=== PATIENT | female | born 1985 | race Caucasian/White ===

== ENCOUNTER 2016-09-10 18:10 | Emergency (ER) | payer OTHER ==
[~2016-09-10] VITALS: Ht 165.1 cm; Wt 90.7 kg
[~2016-09-10 18:10] MED LIST: AMITRIPTYLINE25 MG PO; ANAPROX DS550 MG PO; ANTIVERT25 MG PO; BENTYL10 MG PO; CELEXA40 MG PO; CIPROFLOXACIN500 MG PO; CLARITIN10 MG PO; CYCLOBENZAPRINE10 MG PO; ENDOMETRIN100 MG PO; ENDOMETRIN100 MG VG; Fioricet 325 MG1 TAB PO; HYDROCODONE BIT1 T11 PO; LEVAQUIN750 M1 PO; MACROBID100 M1 PO; MEDROL DOSEPAK4 MG PO; MOTRIN 600 MG E4 TAB PO; MOTRIN600 MG PO; Motrin,Rufen800 MG PO; NAPROSYN500 MG PO; NORCO 5-325 TA1 EACH PO; Orphenadrine C100 MG PO; PERCOCET 325 MG1 TA5 PO; PERCOCET 325 MG1 TA6 PO; PHENERGAN25 M1 PO; PHENERGAN25 MG R; PREDNISONE50 MG PO; PROTONIX40 MG PO; SYNTHROID,LEV112 MCG PO; SYNTHROID,LEV125 MCG PO; SYNTHROID0.05 MG PO; Synthroid,Lev100 MCG PO; TESSALON PERLE100 M1 PO; TOPAMAX25 M3 PO; TORADOL60 MG/2 ML PO; TRAMADOL HCL50 MG PO; TRIMOX500 MG PO; ULTRAM50 MG PO; VALIUM10 MG PO; VITAMIN D50000 I3 PO; XANAX0.5 MG PO; ZITHROMAX Z PA250 MG PO; ZOFRAN ODT4 MG SL; ZOFRAN4 MG PO
[2016-09-10] MEDS ORDERED: AMITRIPTYLINE10 MG PO (18:26)
[2016-09-10 19:10] VITALS: BP 124/74
== END 2016-09-10 20:29 | disposition home or self-care (01) ==
LOC: ED 18:10
DX: G43.909 Migraine, unspecified, not intractable, without status migrainosus (principal); F41.9 Anxiety disorder, unspecified; E03.9 Hypothyroidism, unspecified; E78.5 Hyperlipidemia, unspecified

== ENCOUNTER 2016-11-10 21:15 | Emergency (ER) | payer OTHER ==
[~2016-11-10] VITALS: Ht 165.1 cm; Wt 90.7 kg
[~2016-11-10 21:15] MED LIST changes: +AMITRIPTYLINE10 MG PO
== END 2016-11-10 23:48 | disposition left against medical advice (07) ==
LOC: ED 21:15
DX: R51 Headache (principal); H57.12 Ocular pain, left eye; F41.9 Anxiety disorder, unspecified; G89.29 Other chronic pain; F32.9 Major depressive disorder, single episode, unspecified; E78.5 Hyperlipidemia, unspecified; E03.9 Hypothyroidism, unspecified; G43.909 Migraine, unspecified, not intractable, without status migrainosus; Z79.899 Other long term (current) drug therapy

== ENCOUNTER 2016-12-02 21:40 | Emergency (ER) | payer OTHER ==
[~2016-12-02] VITALS: Ht 165.1 cm; Wt 90.7 kg
[2016-12-02 22:46] LABS: BASO % 0.6 % (0.0-1.0); EOS # 0.1 10*3/uL (0.0-0.4); EOS % 1.4 % (1.0-4.0); HEMATOCRIT 38.1 % (37.0-47.0); HEMOGLOBIN 12.8 g/dl (12.0-16.0); LYMPH # 2.2 10*3/uL (1.3-4.4); LYMPH % 33.8 % (27.0-41.0); MEAN CELL VOLUME 92.9 fl (81.0-99.0); MEAN CORPUSCULAR HGB 31.2 pg (27.0-31.0); MEAN CORPUSCULAR HGB CONC 33.6 g/dl (33.0-37.0); MEAN PLATELET VOLUME 9.2 fl (9.6-12.3); MONO # 0.5 10*3/uL (0.1-1.0); NEUT # 3.8 10*3/uL (2.3-7.9); NEUT % 56.9 % (47.0-73.0); PLATELET COUNT AUTOMATED 200 10*3/uL (130-400); RED CELL DISTRI WIDTH 13.5 % (0-14.5); WHITE BLOOD COUNT 6.6 10*3/uL (4.8-10.8)
[2016-12-02 23:01] LABS: BUN 14 mg/dl (7-24); CARBON DIOXIDE 26 mmol/L (21-32); CHLORIDE 106 mmol/L (98-107); EST GLOM FILT AFRICAN AMERICAN > 60 ml/min; GLUCOSE 105 mg/dL (65-99); POTASSIUM 4.1 mmol/L (3.5-5.1); SODIUM 141 mmol/L (136-145)
[2016-12-02 23:55] VITALS: BP 118/70
== END 2016-12-03 01:19 | disposition home or self-care (01) ==
LOC: ED 21:40
PROVIDERS: Emergency Medicine Emergency Medical Services
DX: G43.909 Migraine, unspecified, not intractable, without status migrainosus (principal); F41.9 Anxiety disorder, unspecified; F32.9 Major depressive disorder, single episode, unspecified; E78.5 Hyperlipidemia, unspecified; E03.9 Hypothyroidism, unspecified; Z79.899 Other long term (current) drug therapy

== ENCOUNTER 2016-12-13 02:08 | Emergency (ER) | payer OTHER ==
[~2016-12-13] VITALS: Ht 165.1 cm; Wt 90.7 kg
[2016-12-13 04:17] VITALS: BP 114/77
[2016-12-13] MEDS ORDERED: ZOFRAN ODT4 MG SL (04:48)
== END 2016-12-13 06:40 | disposition home or self-care (01) ==
LOC: ED 02:08
DX: G43.809 Other migraine, not intractable, without status migrainosus (principal); F41.9 Anxiety disorder, unspecified; F32.9 Major depressive disorder, single episode, unspecified; E78.5 Hyperlipidemia, unspecified; E03.9 Hypothyroidism, unspecified; F17.200 Nicotine dependence, unspecified, uncomplicated; Z79.899 Other long term (current) drug therapy

== ENCOUNTER 2017-01-09 23:25 | Emergency (ER) | payer OTHER ==
[~2017-01-09] VITALS: Ht 165.1 cm; Wt 90.7 kg
[2017-01-09 23:31] VITALS: BP 136/87
[2017-01-09] MEDS ORDERED: INDOMETHACIN25 M1 PO (23:32)
== END 2017-01-10 02:14 | disposition home or self-care (01) ==
LOC: ED 23:25
DX: R51 Headache (principal); Z90.49 Acquired absence of other specified parts of digestive tract; Z79.899 Other long term (current) drug therapy

== ENCOUNTER 2017-01-11 12:55 | Inpatient (IN) | payer OTHER ==
[~2017-01-11] VITALS: Ht 165.1 cm; Wt 94.8 kg
[~2017-01-11 12:55] MED LIST changes: +INDOMETHACIN25 M1 PO
[2017-01-11 13:00] VITALS: BP 120/81
[2017-01-11 13:09] LABS: BASO % 0.3 % (0.0-1.0); EOS # 0.1 10*3/uL (0.0-0.4); EOS % 0.4 % (1.0-4.0); HEMATOCRIT 41.8 % (37.0-47.0); HEMOGLOBIN 14.1 g/dl (12.0-16.0); IG # 0.1 10*3/uL (0.0-0.1); LYMPH # 1.5 10*3/uL (1.3-4.4); LYMPH % 11.4 % (27.0-41.0); MEAN CELL VOLUME 91.5 fl (81.0-99.0); MEAN CORPUSCULAR HGB 30.9 pg (27.0-31.0); MEAN CORPUSCULAR HGB CONC 33.7 g/dl (33.0-37.0); MONO # 0.6 10*3/uL (0.1-1.0); MONO % 4.5 % (3.0-9.0); NEUT % 82.9 % (47.0-73.0); PLATELET COUNT AUTOMATED 246 10*3/uL (130-400); RED BLOOD COUNT 4.57 10*6/uL (4.10-5.10); RED CELL DISTRI WIDTH 13.1 % (0-14.5); WHITE BLOOD COUNT 13.2 10*3/uL (4.8-10.8)
[2017-01-11 13:20] LABS: INTERNATIONAL NORM RATIO 0.9 (2.0-3.5); PROTHROMBIN TIME 9.8 SECONDS (9.0-12.4)
[2017-01-11 13:26] LABS: ALBUMIN 3.6 gm/dl (3.1-4.5); ALKALINE PHOSPHATASE 101 U/L (45-117); BILIRUBIN, TOTAL 0.5 mg/dl (0.2-1.0); BUN 13 mg/dl (7-24); CARBON DIOXIDE 23 mmol/L (21-32); CHLORIDE 106 mmol/L (98-107); EST GLOM FILT AFRICAN AMERICAN > 60 ml/min; GLUCOSE 94 mg/dL (65-99); POTASSIUM 4.1 mmol/L (3.5-5.1); SGOT/AST 42 IU/L (3-35); SGPT/ALT 45 U/L (12-78); SODIUM 140 mmol/L (136-145); TOTAL PROTEIN 7.2 gm/dL (6.4-8.2)
[2017-01-11 13:30] LABS: TROPONIN I < 0.015 ng/ml (<0.045)
[2017-01-11 13:33] VITALS: BP 117/77
[2017-01-11 14:00] VITALS: BP 124/87
[2017-01-11 16:00] VITALS: BP 121/75
[2017-01-11 17:31] VITALS: BP 120/77
[2017-01-11 20:00] VITALS: BP 116/79
[2017-01-12] VITALS: BP 107/64
[2017-01-12 05:54] LABS: BASO % 0.1 % (0.0-1.0); HEMATOCRIT 39.8 % (37.0-47.0); HEMOGLOBIN 13.3 g/dl (12.0-16.0); IG # 0.3 10*3/uL (0.0-0.1); LYMPH # 1.3 10*3/uL (1.3-4.4); LYMPH % 7.8 % (27.0-41.0); MEAN CELL VOLUME 92.6 fl (81.0-99.0); MEAN CORPUSCULAR HGB 30.9 pg (27.0-31.0); MEAN CORPUSCULAR HGB CONC 33.4 g/dl (33.0-37.0); MEAN PLATELET VOLUME 9.1 fl (9.6-12.3); MONO # 0.8 10*3/uL (0.1-1.0); MONO % 4.9 % (3.0-9.0); NEUT # 14.8 10*3/uL (2.3-7.9); NEUT % 85.6 % (47.0-73.0); PLATELET COUNT AUTOMATED 272 10*3/uL (130-400); RED CELL DISTRI WIDTH 13.1 % (0-14.5); WHITE BLOOD COUNT 17.3 10*3/uL (4.8-10.8)
[2017-01-12 06:03] LABS: BUN 12 mg/dl (7-24); CARBON DIOXIDE 28 mmol/L (21-32); CHLORIDE 105 mmol/L (98-107); EST GLOM FILT AFRICAN AMERICAN > 60 ml/min; GLUCOSE 111 mg/dL (65-99); MAGNESIUM 1.9 mg/dL (1.5-2.1); PHOSPHOROUS 2.6 mg/dL (2.5-4.9); POTASSIUM 4.4 mmol/L (3.5-5.1); SODIUM 137 mmol/L (136-145)
[2017-01-12 06:10] LABS: FREE T4 0.98 ng/dl (0.76-1.46); THYROID STIM HORMONE (HS) 0.657 uIU/ml (0.358-4.75)
[2017-01-12 07:31] LABS: HEMOGLOBIN A1c 5.5 % (4.8-5.6)
[2017-01-12 07:58] LABS: FOLIC ACID 4.54 ng/mL (>5.38); VITAMIN D, 25-HYDROXY 18.1 ng/mL (30-100)
[2017-01-12 08:00] VITALS: BP 102/63
[2017-01-12 12:00] VITALS: BP 117/67
== END 2017-01-12 15:35 | disposition home or self-care (01) | DRG 313 ==
LOC: ED 12:55 → 4E 17:06
PROVIDERS: Emergency Medicine; Internal Medicine
DX: R07.89 Other chest pain (principal); R65.10 Systemic inflammatory response syndrome (SIRS) of non-infectious origin without acute organ dysfunction; G44.51 Hemicrania continua; F41.1 Generalized anxiety disorder; E03.9 Hypothyroidism, unspecified; F32.9 Major depressive disorder, single episode, unspecified; R06.82 Tachypnea, not elsewhere classified; R00.0 Tachycardia, unspecified; E87.6 Hypokalemia; G43.909 Migraine, unspecified, not intractable, without status migrainosus; G89.29 Other chronic pain; E78.5 Hyperlipidemia, unspecified; Z90.49 Acquired absence of other specified parts of digestive tract; Z83.3 Family history of diabetes mellitus; Z82.49 Family history of ischemic heart disease and other diseases of the circulatory system; M54.12 Radiculopathy, cervical region

== ENCOUNTER 2017-01-13 23:20 | Emergency (ER) | payer OTHER ==
[2017-01-13 23:26] VITALS: BP 130/86
[2017-01-13 23:37] LABS: BASO # 0.1 10*3/uL (0.0-0.1); BASO % 0.4 % (0.0-1.0); EOS # 0.1 10*3/uL (0.0-0.4); EOS % 0.7 % (1.0-4.0); HEMATOCRIT 40.1 % (37.0-47.0); HEMOGLOBIN 13.4 g/dl (12.0-16.0); IG # 0.1 10*3/uL (0.0-0.1); LYMPH # 2.8 10*3/uL (1.3-4.4); LYMPH % 23.4 % (27.0-41.0); MEAN CELL VOLUME 92.8 fl (81.0-99.0); MEAN CORPUSCULAR HGB CONC 33.4 g/dl (33.0-37.0); MEAN PLATELET VOLUME 8.7 fl (9.6-12.3); MONO # 0.8 10*3/uL (0.1-1.0); MONO % 6.9 % (3.0-9.0); NEUT % 67.7 % (47.0-73.0); PLATELET COUNT AUTOMATED 257 10*3/uL (130-400); RED BLOOD COUNT 4.32 10*6/uL (4.10-5.10); RED CELL DISTRI WIDTH 13.2 % (0-14.5); WHITE BLOOD COUNT 11.8 10*3/uL (4.8-10.8)
[2017-01-13 23:47] LABS: INTERNATIONAL NORM RATIO 0.9 (2.0-3.5); PROTHROMBIN TIME 9.7 SECONDS (9.0-12.4)
[2017-01-13 23:54] LABS: ALBUMIN 3.2 gm/dl (3.1-4.5); ALKALINE PHOSPHATASE 92 U/L (45-117); BILIRUBIN, TOTAL 0.3 mg/dl (0.2-1.0); BUN 12 mg/dl (7-24); CARBON DIOXIDE 26 mmol/L (21-32); CHLORIDE 106 mmol/L (98-107); EST GLOM FILT AFRICAN AMERICAN > 60 ml/min; GLUCOSE 84 mg/dL (65-99); MAGNESIUM 1.8 mg/dL (1.5-2.1); POTASSIUM 3.6 mmol/L (3.5-5.1); SGOT/AST 35 IU/L (3-35); SGPT/ALT 39 U/L (12-78); SODIUM 140 mmol/L (136-145); TOTAL PROTEIN 6.9 gm/dL (6.4-8.2)
[2017-01-13 23:55] LABS: TROPONIN I < 0.015 ng/ml (<0.045)
[2017-01-15] MEDS ORDERED: NORCO 5-325 TA1 EACH PO (01:34)
== END 2017-01-14 02:55 | disposition home or self-care (01) ==
LOC: ED 23:20
PROVIDERS: Emergency Medicine Emergency Medical Services
DX: R07.89 Other chest pain (principal); F41.9 Anxiety disorder, unspecified; G43.909 Migraine, unspecified, not intractable, without status migrainosus; G89.29 Other chronic pain; F32.9 Major depressive disorder, single episode, unspecified; E78.5 Hyperlipidemia, unspecified; E03.9 Hypothyroidism, unspecified; Z98.890 Other specified postprocedural states; Z90.49 Acquired absence of other specified parts of digestive tract; Z98.51 Tubal ligation status; Z79.899 Other long term (current) drug therapy

== ENCOUNTER 2017-01-14 23:30 | Emergency (ER) | payer OTHER ==
[~2017-01-14] VITALS: Ht 165.1 cm; Wt 90.7 kg
[2017-01-15] MEDS ORDERED: NORCO 5-325 TA1 EACH PO (01:34)
[2017-01-15 01:44] VITALS: BP 118/72
== END 2017-01-15 01:45 | disposition home or self-care (01) ==
LOC: ED 23:30
DX: R51 Headache (principal); F17.200 Nicotine dependence, unspecified, uncomplicated; F32.9 Major depressive disorder, single episode, unspecified; E03.9 Hypothyroidism, unspecified; E78.5 Hyperlipidemia, unspecified; F41.9 Anxiety disorder, unspecified; Z90.49 Acquired absence of other specified parts of digestive tract; Z79.899 Other long term (current) drug therapy

== ENCOUNTER 2017-01-29 23:27 | Emergency (ER) | payer OTHER ==
[~2017-01-29] VITALS: Ht 165.1 cm; Wt 90.7 kg
[2017-01-29 23:31] VITALS: BP 121/82
== END 2017-01-30 03:06 | disposition home or self-care (01) ==
LOC: ED 23:27
DX: R51 Headache (principal); R11.0 Nausea; H53.8 Other visual disturbances; Z79.899 Other long term (current) drug therapy

== ENCOUNTER 2017-02-07 00:44 | Emergency (ER) | payer OTHER ==
[~2017-02-07] VITALS: Wt 90.7 kg
[2017-02-07 00:50] VITALS: BP 123/91
== END 2017-02-07 02:53 | disposition home or self-care (01) ==
LOC: ED 00:44
DX: S66.912A Strain of unspecified muscle, fascia and tendon at wrist and hand level, left hand, initial encounter (principal); R51 Headache; E78.5 Hyperlipidemia, unspecified; E03.9 Hypothyroidism, unspecified; Z79.899 Other long term (current) drug therapy; X58.XXXA Exposure to other specified factors, initial encounter; Y93.9 Activity, unspecified; Y92.9 Unspecified place or not applicable; Y99.9 Unspecified external cause status

== ENCOUNTER 2017-02-17 18:31 | Emergency (ER) | payer OTHER ==
[~2017-02-17] VITALS: Ht 165.1 cm; Wt 90.7 kg
[2017-02-17] MEDS ORDERED: VICODIN 5-3001 EACH PO (18:41)
[2017-02-17 19:41] LABS: BASO % 0.5 % (0.0-1.0); EOS # 0.2 10*3/uL (0.0-0.4); EOS % 1.9 % (1.0-4.0); HEMATOCRIT 42.6 % (37.0-47.0); HEMOGLOBIN 14.3 g/dl (12.0-16.0); LYMPH # 1.2 10*3/uL (1.3-4.4); LYMPH % 14.3 % (27.0-41.0); MEAN CELL VOLUME 92.4 fl (81.0-99.0); MEAN CORPUSCULAR HGB CONC 33.6 g/dl (33.0-37.0); MEAN PLATELET VOLUME 8.6 fl (9.6-12.3); MONO # 0.7 10*3/uL (0.1-1.0); MONO % 7.7 % (3.0-9.0); NEUT # 6.3 10*3/uL (2.3-7.9); NEUT % 75.1 % (47.0-73.0); PLATELET COUNT AUTOMATED 229 10*3/uL (130-400); RED BLOOD COUNT 4.61 10*6/uL (4.10-5.10); RED CELL DISTRI WIDTH 13.6 % (0-14.5); WHITE BLOOD COUNT 8.4 10*3/uL (4.8-10.8)
[2017-02-17 19:57] LABS: BUN 6 mg/dl (7-24); CARBON DIOXIDE 26 mmol/L (21-32); CHLORIDE 101 mmol/L (98-107); EST GLOM FILT AFRICAN AMERICAN > 60 ml/min; GLUCOSE 96 mg/dL (65-99); POTASSIUM 3.9 mmol/L (3.5-5.1); SODIUM 139 mmol/L (136-145)
[2017-02-17 19:58] LABS: TROPONIN I < 0.015 ng/ml (<0.045)
[2017-02-17 20:29] VITALS: BP 105/63
[2017-02-17] MEDS ORDERED: PROAIR HFA8.5 GM INH (21:00)
[2017-02-17] MEDS ORDERED: ZITHROMAX250 MG PO (21:02)
[2017-02-17] MEDS ORDERED: ROBITUSSIN DM 105 ML PO (21:02)
== END 2017-02-17 21:33 | disposition home or self-care (01) ==
LOC: ED 18:31
PROVIDERS: Emergency Medicine Emergency Medical Services
DX: J40 Bronchitis, not specified as acute or chronic (principal); R11.10 Vomiting, unspecified; E78.5 Hyperlipidemia, unspecified; E03.9 Hypothyroidism, unspecified; G89.29 Other chronic pain; Z79.899 Other long term (current) drug therapy

== ENCOUNTER 2017-03-29 23:01 | Emergency (ER) | payer OTHER ==
[~2017-03-29] VITALS: Ht 165.1 cm; Wt 90.7 kg
[~2017-03-29 23:01] MED LIST changes: +PROAIR HFA8.5 GM INH; +ROBITUSSIN DM 105 ML PO; +VICODIN 5-3001 EACH PO; +ZITHROMAX250 MG PO
[2017-03-29 23:11] VITALS: BP 117/86
[2017-03-29] MEDS ORDERED: LIPITOR10 MG PO (23:11)
== END 2017-03-30 01:40 | disposition home or self-care (01) ==
LOC: ED 23:01
DX: G43.909 Migraine, unspecified, not intractable, without status migrainosus (principal); Z98.890 Other specified postprocedural states; Z90.49 Acquired absence of other specified parts of digestive tract; Z98.51 Tubal ligation status; Z79.899 Other long term (current) drug therapy

== ENCOUNTER → 2017-04-05 | Outpatient (CLI) | payer OTHER ==
[~2017-04-05] MED LIST changes: +LIPITOR10 MG PO
== END | disposition home or self-care (01) ==
LOC: US 04-04 07:30
DX: R94.5 Abnormal results of liver function studies (principal)

== ENCOUNTER 2017-05-12 13:22 | Emergency (ER) | payer SELFPAY ==
[~2017-05-12] VITALS: Wt 90.7 kg
[2017-05-12 13:22] VITALS: BP 112/64
[2017-05-12 13:42] LABS: BASO % 0.4 % (0.0-1.0); EOS # 0.2 10*3/uL (0.0-0.4); EOS % 2.1 % (1.0-4.0); HEMATOCRIT 42.4 % (37.0-47.0); HEMOGLOBIN 14.1 g/dl (12.0-16.0); LYMPH # 1.5 10*3/uL (1.3-4.4); LYMPH % 20.4 % (27.0-41.0); MEAN CORPUSCULAR HGB 31.3 pg (27.0-31.0); MEAN CORPUSCULAR HGB CONC 33.3 g/dl (33.0-37.0); MEAN PLATELET VOLUME 9.1 fl (9.6-12.3); MONO # 0.4 10*3/uL (0.1-1.0); MONO % 5.2 % (3.0-9.0); NEUT # 5.2 10*3/uL (2.3-7.9); NEUT % 71.2 % (47.0-73.0); PLATELET COUNT AUTOMATED 228 10*3/uL (130-400); RED BLOOD COUNT 4.51 10*6/uL (4.10-5.10); RED CELL DISTRI WIDTH 13.8 % (0-14.5); WHITE BLOOD COUNT 7.3 10*3/uL (4.8-10.8)
[2017-05-12 13:59] LABS: ALBUMIN 3.5 gm/dl (3.1-4.5); ALKALINE PHOSPHATASE 91 U/L (45-117); BUN 7 mg/dl (7-24); CHLORIDE 106 mmol/L (98-107); LIPASE 197 U/L (73-393); SGOT/AST 61 IU/L (3-35); SGPT/ALT 50 U/L (12-78); SODIUM 136 mmol/L (136-145); TOTAL PROTEIN 7.2 gm/dL (6.4-8.2)
[2017-05-12] MEDS ORDERED: Fioricet 325 MG1 TAB PO (16:49)
== END 2017-05-12 18:06 | disposition home or self-care (01) ==
LOC: ED 13:22
PROVIDERS: Emergency Medicine
DX: G43.909 Migraine, unspecified, not intractable, without status migrainosus (principal); G89.29 Other chronic pain; E78.5 Hyperlipidemia, unspecified; E03.9 Hypothyroidism, unspecified; Z98.890 Other specified postprocedural states; Z90.49 Acquired absence of other specified parts of digestive tract; Z98.51 Tubal ligation status; Z79.899 Other long term (current) drug therapy

== ENCOUNTER 2017-05-30 19:30 | Emergency (ER) | payer OTHER ==
[~2017-05-30] VITALS: Ht 165.1 cm; Wt 86.2 kg
[2017-05-30 19:46] VITALS: BP 120/76
[2017-05-30 20:12] LABS: BASO % 0.6 % (0.0-1.0); EOS # 0.2 10*3/uL (0.0-0.4); EOS % 2.6 % (1.0-4.0); HEMATOCRIT 40.1 % (37.0-47.0); HEMOGLOBIN 13.2 g/dl (12.0-16.0); LYMPH # 2.2 10*3/uL (1.3-4.4); LYMPH % 32.6 % (27.0-41.0); MEAN CELL VOLUME 93.5 fl (81.0-99.0); MEAN CORPUSCULAR HGB 30.8 pg (27.0-31.0); MEAN CORPUSCULAR HGB CONC 32.9 g/dl (33.0-37.0); MEAN PLATELET VOLUME 8.8 fl (9.6-12.3); MONO # 0.6 10*3/uL (0.1-1.0); MONO % 8.4 % (3.0-9.0); NEUT # 3.7 10*3/uL (2.3-7.9); NEUT % 55.5 % (47.0-73.0); PLATELET COUNT AUTOMATED 227 10*3/uL (130-400); RED BLOOD COUNT 4.29 10*6/uL (4.10-5.10); RED CELL DISTRI WIDTH 13.4 % (0-14.5); WHITE BLOOD COUNT 6.7 10*3/uL (4.8-10.8)
[2017-05-30 20:20] LABS: ACT PARTIAL THROMBO TIME 24.9 SECONDS (20.8-31.5); INTERNATIONAL NORM RATIO 0.9 (2.0-3.5)
[2017-05-30 20:28] LABS: ALBUMIN 3.3 gm/dl (3.1-4.5); ALKALINE PHOSPHATASE 97 U/L (45-117); BUN 6 mg/dl (7-24); CHLORIDE 108 mmol/L (98-107); CREATININE 0.92 mg/dL (0.55-1.02); POTASSIUM 3.5 mmol/L (3.5-5.1); SGOT/AST 81 IU/L (3-35); SGPT/ALT 66 U/L (12-78); SODIUM 141 mmol/L (136-145); TOTAL PROTEIN 6.9 gm/dL (6.4-8.2)
[2017-05-30 20:35] LABS: BETA-HCG, QUANT < 1.0 mIU/mL (1-3); TROPONIN I < 0.015 ng/ml (<0.045)
== END 2017-05-30 23:52 | disposition home or self-care (01) ==
LOC: ED 19:30
PROVIDERS: Student in an Organized Health Care Education/Training Program
DX: G43.909 Migraine, unspecified, not intractable, without status migrainosus (principal); R20.0 Anesthesia of skin; G89.29 Other chronic pain; E78.5 Hyperlipidemia, unspecified; E03.9 Hypothyroidism, unspecified; Z98.890 Other specified postprocedural states; Z98.51 Tubal ligation status; Z79.899 Other long term (current) drug therapy

== ENCOUNTER → 2017-06-18 | Day surgery (SDC) | payer OTHER ==
[~2017-06-18] VITALS: Ht 165.1 cm; Wt 97.1 kg
[2017-06-18 09:45] VITALS: BP 98/46
[2017-06-18 10:58] VITALS: BP 82/48
[2017-06-18 11:13] VITALS: BP 91/50
[2017-06-18 11:26] VITALS: BP 100/61
== END | disposition home or self-care (01) ==
LOC: SDC 06-15 10:15
DX: K29.70 Gastritis, unspecified, without bleeding (principal); E03.9 Hypothyroidism, unspecified; F41.9 Anxiety disorder, unspecified; F32.9 Major depressive disorder, single episode, unspecified; Z98.51 Tubal ligation status; Z82.49 Family history of ischemic heart disease and other diseases of the circulatory system; Z83.3 Family history of diabetes mellitus; Z86.69 Personal history of other diseases of the nervous system and sense organs; G43.909 Migraine, unspecified, not intractable, without status migrainosus

== ENCOUNTER 2017-07-12 14:08 | Emergency (ER) | payer OTHER ==
[~2017-07-12] VITALS: Wt 95.3 kg
[2017-07-12 14:12] VITALS: BP 110/80
== END 2017-07-12 16:53 | disposition home or self-care (01) ==
LOC: ED 14:08
DX: G43.909 Migraine, unspecified, not intractable, without status migrainosus (principal); Z79.899 Other long term (current) drug therapy; Z90.49 Acquired absence of other specified parts of digestive tract; Z98.51 Tubal ligation status

== ENCOUNTER 2017-08-17 00:49 | Emergency (ER) | payer OTHER ==
[~2017-08-17] VITALS: Ht 165.1 cm; Wt 95.3 kg
[2017-08-17 00:52] VITALS: BP 98/60
[2017-08-17 02:02] LABS: BASO % 0.4 % (0.0-1.0); EOS # 0.1 10*3/uL (0.0-0.4); EOS % 1.2 % (1.0-4.0); HEMATOCRIT 42.6 % (37.0-47.0); LYMPH # 2.6 10*3/uL (1.3-4.4); LYMPH % 35.7 % (27.0-41.0); MEAN CORPUSCULAR HGB 30.6 pg (27.0-31.0); MEAN CORPUSCULAR HGB CONC 32.9 g/dl (33.0-37.0); MEAN PLATELET VOLUME 9.3 fl (9.6-12.3); MONO # 0.6 10*3/uL (0.1-1.0); MONO % 7.5 % (3.0-9.0); NEUT % 54.8 % (47.0-73.0); PLATELET COUNT AUTOMATED 245 10*3/uL (130-400); RED BLOOD COUNT 4.58 10*6/uL (4.10-5.10); RED CELL DISTRI WIDTH 14.2 % (0-14.5); WHITE BLOOD COUNT 7.3 10*3/uL (4.8-10.8)
[2017-08-17 02:20] LABS: ALBUMIN 3.6 gm/dl (3.1-4.5); ALKALINE PHOSPHATASE 94 U/L (45-117); BUN 8 mg/dl (7-24); CHLORIDE 105 mmol/L (98-107); CREATININE 1.03 mg/dL (0.55-1.02); POTASSIUM 3.6 mmol/L (3.5-5.1); SGOT/AST 69 IU/L (3-35); SGPT/ALT 59 U/L (12-78); SODIUM 140 mmol/L (136-145); TOTAL PROTEIN 7.3 gm/dL (6.4-8.2)
[2017-08-17 02:23] LABS: BETA-HCG, QUANT < 1.0 mIU/mL (1-3); TROPONIN I < 0.015 ng/ml (<0.045)
== END 2017-08-17 03:17 | disposition home or self-care (01) ==
LOC: ED 00:49
PROVIDERS: Student in an Organized Health Care Education/Training Program
DX: T14.8XXA Other injury of unspecified body region, initial encounter (principal); R51 Headache; M79.672 Pain in left foot; M53.3 Sacrococcygeal disorders, not elsewhere classified; R11.10 Vomiting, unspecified; E78.5 Hyperlipidemia, unspecified; E03.9 Hypothyroidism, unspecified; G43.909 Migraine, unspecified, not intractable, without status migrainosus; W18.39XA Other fall on same level, initial encounter; Z79.899 Other long term (current) drug therapy; Y93.89 Activity, other specified; Y92.89 Other specified places as the place of occurrence of the external cause; Y99.8 Other external cause status

== ENCOUNTER 2018-01-16 16:21 | Emergency (ER) | payer OTHER ==
[~2018-01-16] VITALS: Ht 165.1 cm; Wt 90.7 kg
[2018-01-16 16:21] VITALS: BP 136/92
[2018-01-16 16:51] LABS: BILIRUBIN NEGATIVE (NEGATIVE); BLOOD 3+ (NEGATIVE); CLARITY SL CLOUDY (CLEAR); COLOR YELLOW (YELLOW); GLUCOSE NEGATIVE (NEGATIVE); KETONE NEGATIVE (NEGATIVE); LEUKO ESTERASE 1+ (NEGATIVE); NITRITE NEGATIVE (NEGATIVE); PH 5.5 (5.0-9.0); UROBILINOGEN 0.2 E.U./dl (0.2-1.0)
[2018-01-16 17:08] LABS: BACTERIA 3+
[2018-01-16 17:09] LABS: EPITHELIAL CELLS 31-40
[2018-01-16 17:10] LABS: RBC 21-30 rbc/hpf (0-2)
== END 2018-01-16 17:59 | disposition home or self-care (01) ==
LOC: ED 16:21
PROVIDERS: Physician Assistant
DX: G43.909 Migraine, unspecified, not intractable, without status migrainosus (principal); N93.8 Other specified abnormal uterine and vaginal bleeding; Z98.890 Other specified postprocedural states; Z90.49 Acquired absence of other specified parts of digestive tract; Z98.51 Tubal ligation status; Z79.899 Other long term (current) drug therapy

== ENCOUNTER 2018-07-30 21:34 | Emergency (ER) | payer OTHER ==
[~2018-07-30] VITALS: Ht 165.1 cm; Wt 89.8 kg
--- NOTE | ~2018-07-30 | EKG ---
[place], [place] ELECTROCARDIOGRAM REPORT NAME: PENG BEARD UNIT #: [id number] ROOM: DOCTOR: EPIPHANY DRAFT REPORT BIRTHDATE: [birth year] [facility] Test Date: 2018-07-30 Test Time: 22:39:16 Pat Name: PENG BEARD Department: ER Room: 19 Gender: F Tank Riveter: Janee Varela : 1985 Requested By: HAVEN REEVES Order Number: [id number] Reading MD: Josh Garcia MD Measurements Intervals [place] Rate: 81 P: 10 CA: 144 QRS: 4 QRSD: 84 T: 2 QT: 369 QTc: 429 Interpretive Statements Sinus rhythm Low voltage, precordial leads Borderline T abnormalities, anterior leads Electronically Signed On 07-31-2018 18:07:11 PST by Josh Garcia MD CM:EKGRPT:ELECTROCARDIOGRAM REPORT [id number] HAVEN CRONIN DRAFT REPORT HAVEN REEVES DO
[~2018-07-30 21:34] MED LIST changes: +AMOXICILLIN500 M2 PO; +DIFLUCAN150 MG PO; +PREDNISONE20 M1 PO; +PROVENTIL HFA6.7 GM INH
[2018-07-30 22:35] LABS: BASO % 0.5 % (0.0-1.0); EOS % 0.4 % (1.0-4.0); HEMATOCRIT 40.8 % (37.0-47.0); HEMOGLOBIN 13.5 g/dl (12.0-16.0); LYMPH # 2.4 10*3/uL (1.3-4.4); LYMPH % 31.8 % (27.0-41.0); MEAN CELL VOLUME 93.8 fl (81.0-99.0); MEAN CORPUSCULAR HGB CONC 33.1 g/dl (33.0-37.0); MONO # 0.6 10*3/uL (0.1-1.0); MONO % 7.3 % (3.0-9.0); NEUT # 4.5 10*3/uL (2.3-7.9); NEUT % 59.6 % (47.0-73.0); PLATELET COUNT AUTOMATED 247 10*3/uL (130-400); RED BLOOD COUNT 4.35 10*6/uL (4.10-5.10); RED CELL DISTRI WIDTH 13.1 % (0-14.5); WHITE BLOOD COUNT 7.5 10*3/uL (4.8-10.8)
[2018-07-30 22:45] LABS: INTERNATIONAL NORM RATIO 0.9 (2.0-3.5)
[2018-07-30 22:53] LABS: ALBUMIN 3.8 gm/dl (3.1-4.5); ALKALINE PHOSPHATASE 84 U/L (45-117); BUN 8 mg/dl (7-24); CHLORIDE 106 mmol/L (98-107); CREATININE 0.84 mg/dL (0.55-1.02); POTASSIUM 3.9 mmol/L (3.5-5.1); SGOT/AST 46 IU/L (3-35); SGPT/ALT 41 U/L (12-78); SODIUM 141 mmol/L (136-145); TOTAL PROTEIN 7.7 gm/dL (6.4-8.2)
[2018-07-30 22:55] LABS: TROPONIN I < 0.015 ng/ml (<0.045)
[2018-07-30 23:31] VITALS: BP 128/90
== END 2018-07-31 00:18 | disposition home or self-care (01) ==
LOC: ED 21:34
PROVIDERS: Emergency Medicine
DX: R00.2 Palpitations (principal); R51 Headache; R06.02 Shortness of breath; R42 Dizziness and giddiness; G43.909 Migraine, unspecified, not intractable, without status migrainosus; G89.29 Other chronic pain; E78.5 Hyperlipidemia, unspecified; E03.9 Hypothyroidism, unspecified; Z79.2 Long term (current) use of antibiotics; Z79.899 Other long term (current) drug therapy; Z90.49 Acquired absence of other specified parts of digestive tract

== ENCOUNTER 2018-12-13 11:09 | Emergency (ER) | payer OTHER ==
[~2018-12-13] VITALS: Ht 165.1 cm; Wt 83.9 kg
[2018-12-13 11:10] VITALS: BP 126/63
[2018-12-13 11:48] LABS: BASO % 0.4 % (0.0-1.0); EOS % 0.3 % (1.0-4.0); HEMATOCRIT 42.7 % (37.0-47.0); HEMOGLOBIN 14.1 g/dl (12.0-16.0); LYMPH # 1.4 10*3/uL (1.3-4.4); MEAN CELL VOLUME 93.4 fl (81.0-99.0); MEAN CORPUSCULAR HGB 30.9 pg (27.0-31.0); MEAN PLATELET VOLUME 8.8 fl (9.6-12.3); MONO # 0.5 10*3/uL (0.1-1.0); MONO % 7.2 % (3.0-9.0); NEUT # 4.9 10*3/uL (2.3-7.9); NEUT % 71.8 % (47.0-73.0); PLATELET COUNT AUTOMATED 239 10*3/uL (130-400); RED BLOOD COUNT 4.57 10*6/uL (4.10-5.10); RED CELL DISTRI WIDTH 13.2 % (0-14.5); WHITE BLOOD COUNT 6.8 10*3/uL (4.8-10.8)
[2018-12-13 12:03] LABS: ALBUMIN 3.4 gm/dl (3.1-4.5); ALKALINE PHOSPHATASE 95 U/L (45-117); BUN 9 mg/dl (7-24); CHLORIDE 106 mmol/L (98-107); CREATININE 0.81 mg/dL (0.55-1.02); POTASSIUM 3.6 mmol/L (3.5-5.1); SGOT/AST 45 IU/L (3-35); SGPT/ALT 33 U/L (12-78); SODIUM 139 mmol/L (136-145); TOTAL PROTEIN 7.3 gm/dL (6.4-8.2)
[2018-12-13 12:05] LABS: B-hCG (QUALITATIVE) NEGATIVE (NEGATIVE)
[2018-12-13] MEDS ORDERED: BENADRYL ALLERG25 M5 PO (12:56)
[2019-01-11] MEDS ORDERED: REGLAN10 M1 PO (16:43)
== END 2018-12-13 12:42 | disposition home or self-care (01) ==
LOC: ED 11:09
PROVIDERS: Emergency Medicine
DX: G43.909 Migraine, unspecified, not intractable, without status migrainosus (principal); E66.9 Obesity, unspecified; G89.29 Other chronic pain; E78.5 Hyperlipidemia, unspecified; E03.9 Hypothyroidism, unspecified; Z79.2 Long term (current) use of antibiotics; Z79.899 Other long term (current) drug therapy; Z90.49 Acquired absence of other specified parts of digestive tract

== ENCOUNTER 2019-04-06 16:42 | Inpatient (IN) | payer SELFPAY ==
[~2019-04-06] VITALS: Ht 165.1 cm; Wt 93.6 kg
--- NOTE | ~2019-04-06 | EKG ---
[place], [place] ELECTROCARDIOGRAM REPORT NAME: PENG CONNER UNIT #: [id number] ROOM: 506 DOCTOR: VICTORINA DRAFT REPORT BIRTHDATE: [birth year] [facility] Test Date: 2019-04-06 Test Time: 19:36:53 Pat Name: PENG CONNER Department: Room: 506 Gender: F Speech Therapy Assistant: EKG.NM : 1985 Requested By: LUKE IBRAHIM Order Number: [id number] Reading MD: Silvio Gardner MD Measurements Intervals [place] Rate: 97 P: 15 LA: 135 QRS: 7 QRSD: 86 T: -1 QT: 357 QTc: 454 Interpretive Statements Sinus rhythm Borderline T abnormalities, diffuse leads Borderline prolonged QT interval Electronically Signed On 04-07-2019 16:06:53 PDT by Silvio Gardner MD CM:EKGRPT:ELECTROCARDIOGRAM REPORT [id number] LUKE PRAJAPATI DRAFT REPORT LUKE IBRAHIM MD
--- NOTE | ~2019-04-06 | EKG ---
[place], [place] ELECTROCARDIOGRAM REPORT NAME: PENG CONNER UNIT #: [id number] ROOM: 506 DOCTOR: VICTORINA DRAFT REPORT BIRTHDATE: [address] [facility] Test Date: 2019-04-06 Test Time: 22:24:34 Pat Name: PENG CONNER Department: Room: 506 Gender: F [employer] Supervisor: Janee Varela : 1985 Requested By: LUKE IBRAHIM Order Number: [id number] Reading MD: Silvio Gardner MD Measurements Intervals [place] Rate: 93 P: 16 [place]: 143 QRS: 5 QRSD: 88 T: 1 QT: 367 QTc: 457 Interpretive Statements Sinus rhythm Nonspecific T wave abnormality Electronically Signed On 04-07-2019 16:09:00 PDT by Silvio Gardner MD CM:EKGRPT:ELECTROCARDIOGRAM REPORT [id number] LUKE PRAJAPATI DRAFT REPORT LUKE IBRAHIM MD
--- NOTE | ~2019-04-06 | EKG ---
[place], [place] ELECTROCARDIOGRAM REPORT NAME: PENG CONNER UNIT #: [id number] ROOM: 506 DOCTOR: VICTORINA DRAFT REPORT BIRTHDATE: [birth year] [facility] Test Date: 2019-04-06 Test Time: 17:18:33 Pat Name: PENG CONNER Department: er Room: 506 Gender: F Jeep Driver: : 1985 Requested By: LUKE IBRAHIM Order Number: [id number] Reading MD: Silvio Gardner MD Measurements Intervals [place] Rate: 113 P: 12 CO: 133 QRS: 2 QRSD: 85 T: -4 QT: 350 QTc: 480 Interpretive Statements Sinus tachycardia Low voltage, precordial leads Borderline T abnormalities, diffuse leads Borderline prolonged QT interval Electronically Signed On 04-07-2019 15:58:33 PDT by Silvio Gardner MD CM:EKGRPT:ELECTROCARDIOGRAM REPORT [id number] LUKE PRAJAPATI DRAFT REPORT LUKE IBRAHIM MD
--- NOTE | ~2019-04-06 | PR ---
[place], [place] PROGRESS NOTE [facility]NER [id number] UNIT #: [id number] ROOM: 506 DOCTOR: RAHEEL OBRIEN BIRTHDATE: [birth year] DOS: 04/08/2019 CARDIOLOGY PROGRESS NOTE The patient is being seen in followup for lower extremity edema and chest pain. SUBJECTIVE: The patient did well overnight with no issues. She denies any chest pain this morning. She denies any shortness of breath. She states her lower extremity edema is better. Telemetry has shown predominantly sinus rhythm with occasional sinus tachycardia, but overall rates are improved. REVIEW OF SYSTEMS: Negative except as described. PHYSICAL EXAMINATION: VITAL SIGNS: Afebrile, pulse currently in the 70s and 80s, respirations 18, blood pressure 102/81, saturating 97% on room air. GENERAL APPEARANCE: A well-appearing lady lying in bed, in no distress. HEENT: Moist mucous membranes. NECK: Supple. No jugular venous pressure elevation. No carotid bruits. RESPIRATORY: Lungs are clear. CARDIOVASCULAR: Regular rhythm with normal rate. No murmurs. ABDOMEN: Positive bowel sounds. Soft, nontender. EXTREMITIES: Warm and well perfused. There is no lower extremity edema noted. LABORATORY DATA: Reviewed. Hemoglobin 11.1, platelets 174. Blood chemistries are pending. CURRENT CARDIAC MEDICATIONS: Include none. Please see medication list for full details. DIAGNOSTIC DATA: Echocardiogram from yesterday reviewed. It was entirely normal with normal LV systolic function and diastolic function, no valvular disease. Stress test is pending. IMPRESSION: 1. Chest pain, atypical with some concerning features, i.e., radiating to left jaw. No evidence of acute coronary syndrome. 2. Nonspecific lower extremity edema, appears to have resolved. She has normal LV systolic and diastolic function. 3. Sinus tachycardia, likely multifactorial from exogenous levothyroxine plus anxiety, overall appears improved. 4. Chronic issues; Chiari malformation, seizure disorder, over-corrected hypothyroidism, depression, anxiety. RECOMMENDATIONS: As mentioned, echocardiogram was entirely normal. She is pending for a regadenoson nuclear stress test today. This is to evaluate the somewhat atypical chest pain. If the stress test is unremarkable, she may be discharged from cardiology standpoint. Further recommendations pending outcome of the exam. [place], [place] PROGRESS NOTE NAME: PENG CONNER UNIT #: [id number] ROOM: 506 DOCTOR: RAHEEL OBRIEN BIRTHDATE: [birth year] Dr. RAHEEL OBRIEN MD CM:PNTRANS [id number] RAHEEL OBRIEN 04/08/19 2326 interface
--- NOTE | ~2019-04-06 | ST ---
[place], [place] EXERCISE STRESS TEST REPORT NAME: PENG CONNER LOCATED [facility]IN [facility] #: [id number] UNIT #: [id number] ROOM: 506 DOCTOR: RAHEEL OBRIEN BIRTHDATE: [birth year] DOS: 04/08/2019 INDICATION: Chest pain. PROTOCOL: Regadenoson SPECT myocardial perfusion imaging. Baseline EKG showed a sinus rhythm with sinus arrhythmia, no resting ST or T-wave abnormalities. Baseline blood pressure was 140/90 with a resting pulse of 73. 0.4 mg of regadenoson was injected per protocol followed by radioisotope injection. No chest pain was reported. EKG showed no evidence of ischemia and no arrhythmias were noted. IMPRESSION: 1. No evidence of regadenoson-induced ischemia on stress EKG. 2. Nuclear images will be reported separately. Dr. RAHEEL OBRIEN MD CM:STRESS:EXERCISE STRESS TEST REPORT [id number] RAHEEL OBRIEN
[~2019-04-06 16:42] MED LIST changes: +BENADRYL ALLERG25 M5 PO; +REGLAN10 M1 PO
[2019-04-06 16:53] VITALS: BP 130/67
[2019-04-06 17:27] LABS: BASO % 0.4 % (0.0-1.0); EOS # 0.1 10*3/uL (0.0-0.4); EOS % 1.8 % (1.0-4.0); HEMATOCRIT 33.1 % (37.0-47.0); HEMOGLOBIN 10.9 g/dl (12.0-16.0); LYMPH # 1.5 10*3/uL (1.3-4.4); LYMPH % 29.8 % (27.0-41.0); MEAN CELL VOLUME 94.3 fl (81.0-99.0); MEAN CORPUSCULAR HGB 31.1 pg (27.0-31.0); MEAN CORPUSCULAR HGB CONC 32.9 g/dl (33.0-37.0); MEAN PLATELET VOLUME 8.4 fl (9.6-12.3); MONO # 0.5 10*3/uL (0.1-1.0); MONO % 9.3 % (3.0-9.0); NEUT % 58.3 % (47.0-73.0); PLATELET COUNT AUTOMATED 168 10*3/uL (130-400); RED BLOOD COUNT 3.51 10*6/uL (4.10-5.10); RED CELL DISTRI WIDTH 13.7 % (0-14.5); WHITE BLOOD COUNT 5.1 10*3/uL (4.8-10.8)
[2019-04-06 17:37] LABS: ACT PARTIAL THROMBO TIME 25.4 SECONDS (20.0-32.1); INTERNATIONAL NORM RATIO 0.9 (2.0-3.5)
[2019-04-06 17:44] LABS: ALKALINE PHOSPHATASE 83 U/L (45-117); BUN 9 mg/dl (7-24); CHLORIDE 104 mmol/L (98-107); CREATININE 0.61 mg/dL (0.55-1.02); POTASSIUM 3.4 mmol/L (3.5-5.1); SGOT/AST 35 IU/L (3-35); SGPT/ALT 25 U/L (12-78); SODIUM 140 mmol/L (136-145)
[2019-04-06 17:45] LABS: B-hCG (QUALITATIVE) NEGATIVE (NEGATIVE); TROPONIN I < 0.015 ng/ml (<0.045)
[2019-04-06 18:12] LABS: BILIRUBIN NEGATIVE (NEGATIVE); BLOOD NEGATIVE (NEGATIVE); CLARITY CLEAR (CLEAR); COLOR YELLOW (YELLOW); GLUCOSE NEGATIVE (NEGATIVE); KETONE NEGATIVE (NEGATIVE); LEUKO ESTERASE TRACE (NEGATIVE); NITRITE NEGATIVE (NEGATIVE); UROBILINOGEN 0.2 E.U./dl (0.2-1.0)
[2019-04-06 18:28] LABS: BACTERIA 1+; EPITHELIAL CELLS 21-30
--- NOTE | 2019-04-06 19:50 | NUR ---
A 33, admitted to 5E, under the services of HOOD Gibbs DO with a diagnosis of HYPERTHYROIDISM, ST, LOWER EXTREMITY EDEMA, CHEST TIGHTNESS. Chief complaint is LOWER EXTREMITY EDEMA/NUMBNESS. Patient arrived via wheel chair from ER. Monitor applied. Initial assessment completed. Vital signs taken and recorded. HOOD GIBBS DO notified of admission to the unit. Orders received. See assessment for past medical history, medications and allergies. Patient and/or family oriented to unit. [facility]. Clothing/patient valuable form completed. MAXWELL VICTORIA
[2019-04-06 20:00] VITALS: BP 130/82
--- NOTE | 2019-04-06 20:10 | NUR ---
PT MEDICATED W/NORCO FOR C/O LT SIDE PAIN 05/06.
[2019-04-06] MEDS ORDERED: LEVOTHYROXINE175 MCG PO (20:16)
[2019-04-06] MEDS ORDERED: DULOXETINE HCL60 MG PO (20:17)
[2019-04-06] MEDS ORDERED: DOXEPIN HCL50 MG PO (20:17)
[2019-04-06] MEDS ORDERED: MINIPRESS2 M1 PO (20:18)
--- NOTE | 2019-04-06 21:00 | NUR ---
DR. HODGE NOTIFIED OF PT'S MED REC UTD.
--- NOTE | 2019-04-06 21:00 | NUR ---
PT STATES THAT NORCO WAS EFFECTIVE FOR PAIN RELIEF.
[2019-04-07] VITALS: BP 119/65
[2019-04-07 06:03] LABS: BASO % 0.5 % (0.0-1.0); EOS # 0.1 10*3/uL (0.0-0.4); EOS % 2.1 % (1.0-4.0); HEMATOCRIT 33.6 % (37.0-47.0); HEMOGLOBIN 10.7 g/dl (12.0-16.0); LYMPH # 1.4 10*3/uL (1.3-4.4); LYMPH % 32.6 % (27.0-41.0); MEAN CELL VOLUME 96.6 fl (81.0-99.0); MEAN CORPUSCULAR HGB 30.7 pg (27.0-31.0); MEAN CORPUSCULAR HGB CONC 31.8 g/dl (33.0-37.0); MEAN PLATELET VOLUME 8.5 fl (9.6-12.3); MONO # 0.4 10*3/uL (0.1-1.0); MONO % 8.8 % (3.0-9.0); NEUT # 2.4 10*3/uL (2.3-7.9); NEUT % 55.8 % (47.0-73.0); PLATELET COUNT AUTOMATED 167 10*3/uL (130-400); RED BLOOD COUNT 3.48 10*6/uL (4.10-5.10); RED CELL DISTRI WIDTH 13.8 % (0-14.5); WHITE BLOOD COUNT 4.3 10*3/uL (4.8-10.8)
[2019-04-07 06:30] LABS: ALBUMIN 2.7 gm/dl (3.1-4.5); ALKALINE PHOSPHATASE 83 U/L (45-117); BUN 10 mg/dl (7-24); CHLORIDE 107 mmol/L (98-107); CHOLESTEROL 163 mg/dL (<200); CREATININE 0.65 mg/dL (0.55-1.02); FREE T4 1.05 ng/dl (0.76-1.46); HDL CHOLESTEROL 36 mg/dl (40-60); LDL CHOLESTEROL 65 mg/dL (9-159); PHOSPHOROUS 2.7 mg/dL (2.5-4.9); POTASSIUM 3.4 mmol/L (3.5-5.1); SGOT/AST 36 IU/L (3-35); SGPT/ALT 24 U/L (12-78); SODIUM 143 mmol/L (136-145); TOTAL PROTEIN 5.6 gm/dL (6.4-8.2); TRIGLYCERIDES 309 mg/dl (<150); VLDL CHOLESTEROL 62 mg/dL (6-40)
[2019-04-07 06:36] LABS: THYROID STIM HORMONE (HS) 0.007 uIU/ml (0.358-4.75)
[2019-04-07 07:47] LABS: VITAMIN D, 25-HYDROXY 28.4 ng/mL (30-100)
[2019-04-07 08:00] VITALS: BP 146/92
--- NOTE | 2019-04-07 08:08 | NUR ---
Received a call from [employer] that patients heart rate was up to 142. Checked on patient she ambulated to toilet. She said she felt fine. No c/o SOB, dizzyness. Patient states she can feel her heart racing and she can hear it in her ear. States she talked to her family physician about it but got no response. Notified Dr. Villanueva regarding incident. No new orders at this time. Will continue to monitor.
--- NOTE | 2019-04-07 08:13 | NUR ---
PT. REFUSED AEROSOL TREATMENT. STATES THEY MAKE HER TOO JITTERY. NO RESP. DISTRESS NOTED. DENIES SHORTNESS OF BREATH. LUNGS CLEAR.
--- NOTE | 2019-04-07 11:17 | NUR ---
Contacted Dr. Villanueva regarding HR of 150 w/ambulation and patients c/o headache with blurred vision in left eye. No new orders physician to follow up at bedside.
--- NOTE | 2019-04-07 11:25 | NUR ---
Xanax given per patient request for anxiety and tylenol given per patient request for c/o headache. Will monitor.
[2019-04-07 12:00] VITALS: BP 132/89
--- NOTE | 2019-04-07 12:10 | NUR ---
Xanax effective no signs of anxiety, Tylenol somewhat effective.
--- NOTE | 2019-04-07 12:47 | NUR ---
Metallographic Technician in to talk to patient. Patient states lives at HOME with KRISHNA . There are FEW steps in the home. Physician: MODESTA Pharmacy: [facility] Home health services: NONE Patient's level of ADLs: INDEPENDENT Patient has working utilities: YES DME: NONE Follow-up physician's appointment after d/c: WILL BE MADE BY HOSPITALIST NURSE DIRECTOR ON DISCHARGE Does patient want to access PORTAL?: NO Discharge plan PT LIVES WITH ALEX AND IS INDEPENDENT IN HER CARE DENIES THAT SHE WILL HAVE ANY NEEDS ON DISCHARGE WILL CONTINUE TO FOLLOW. PT STATES SHE WILL HAVE A RIDE HOME ON DISCHARGE. WILFREDO ARCHIBALD
[2019-04-07 16:00] VITALS: BP 138/89
--- NOTE | 2019-04-07 16:15 | NUR ---
Contacted Dr. Villanueva regarding patient c/o headache and tylenol not effective. No new orders at this time, physician to review.
--- NOTE | 2019-04-07 19:36 | NUR ---
PATIENT HAVING SEVERE MIGRAINE, CONTACTED DR. FREIRE, ORDERS PENDING.
[2019-04-07 20:00] VITALS: BP 140/88
--- NOTE | 2019-04-07 20:00 | NUR ---
TORADOL AND IMITREX GIVEN FOR PATIENTS SEVERE MIGRAINE. WILL MONITOR AND REASSESS.
--- NOTE | 2019-04-07 21:23 | NUR ---
PATIENT STATED THE TORADOL AND IMITREX WERE NOT EFFECTIVE. GAVE NORCO, WILL MONITOR AND REASSESS.
--- NOTE | 2019-04-07 22:31 | NUR ---
24 HR chart check completed.
[2019-04-08] VITALS: BP 102/81
--- NOTE | 2019-04-08 00:32 | NUR ---
PATIENT RESTING, NO SIGNS OF DISTRESS.
[2019-04-08 07:50] LABS: BASO % 0.5 % (0.0-1.0); EOS % 0.5 % (1.0-4.0); HEMATOCRIT 33.4 % (37.0-47.0); HEMOGLOBIN 11.1 g/dl (12.0-16.0); LYMPH # 1.2 10*3/uL (1.3-4.4); LYMPH % 18.1 % (27.0-41.0); MEAN CORPUSCULAR HGB 30.8 pg (27.0-31.0); MEAN CORPUSCULAR HGB CONC 33.2 g/dl (33.0-37.0); MEAN PLATELET VOLUME 8.6 fl (9.6-12.3); MONO # 0.5 10*3/uL (0.1-1.0); MONO % 7.5 % (3.0-9.0); NEUT # 4.7 10*3/uL (2.3-7.9); NEUT % 71.4 % (47.0-73.0); NUCLEATED RED BLOOD CELL 0.3 % (0.0-0.0); PLATELET COUNT AUTOMATED 174 10*3/uL (130-400); RED CELL DISTRI WIDTH 13.7 % (0-14.5); WHITE BLOOD COUNT 6.5 10*3/uL (4.8-10.8)
[2019-04-08 07:53] LABS: MEAN CELL VOLUME 92.8 fl (81.0-99.0)
[2019-04-08 08:27] LABS: CHLORIDE 108 mmol/L (98-107); POTASSIUM 3.4 mmol/L (3.5-5.1); SODIUM 140 mmol/L (136-145)
[2019-04-08 08:39] LABS: ALBUMIN 2.8 gm/dl (3.1-4.5); ALKALINE PHOSPHATASE 81 U/L (45-117); BUN 5 mg/dl (7-24); CREATININE 0.54 mg/dL (0.55-1.02); PHOSPHOROUS 1.8 mg/dL (2.5-4.9); SGOT/AST 33 IU/L (3-35); SGPT/ALT 23 U/L (12-78); TOTAL PROTEIN 6.2 gm/dL (6.4-8.2)
--- NOTE | 2019-04-08 09:05 | NUR ---
INFORMED CONSENT OBTAINED FOR LEXISCAN NUCLEAR STRESS TEST WITH DR. OBRIEN. RESTING EKG NSR WITH A RESTING HR OF 73 WITH BP OF 140/90. HAS INVERTED T WAVE IN LEADS V1-V3. LUNGS WITH VERY FINE PB RALES WITH SPO2 OF 93% ON ROOM AIR. PT COMPLETED A 1:00 LEXISCAN PROTOCOL RECEIVING LEXISCAN 0.4 MG IV OVER 10 SECONDS. HAD NO CHEST PAIN OR ANY EKG CHANGES. DID C/O SHORTNESS OF BREATH THAT WAS RELIEVED IN RECOVERY. HAD A PEAK HR OF 126 WITH BP OF 126/84. LAST RECOVERY HR OF 93 WITH BP OF 138/80. AWAITING SCANNING IN STABLE CONDITION.
--- NOTE | 2019-04-08 11:34 | NUR ---
PT CONTINUES TO DENY HOME NEEDS ON DISCHARGE. WILL CONTINUE TO FOLLOW.
[2019-04-08 12:00] VITALS: BP 119/72
[2019-04-08 16:00] VITALS: BP 120/65
[2019-04-08] MEDS ORDERED: SYNTHROID,LEV125 MCG PO (16:34)
--- NOTE | 2019-04-08 17:20 | NUR ---
Discharge instructions reviewed with patient/family. Patient receptive and verbalizes understanding. Follow-up care arranged. Written instructions given to patient/family. Patient educated on medication changes and follow up appointment scheduled with Dr. Daniel. Patient ambulated from unit with family member with all personal belongings accounted for. BALDEV BURNS
== END 2019-04-08 17:20 | disposition home or self-care (01) | DRG 880 ==
LOC: ED 16:42 → EDHOLD 18:36 → 5E 19:11
PROVIDERS: Emergency Medicine; Internal Medicine; ADMIT Family Medicine
PROC: 4A02XM4 Measurement of Cardiac Total Activity, External Approach (ICD-10-PCS; principal; 2019-04-08)
PROC: 3E073KZ Introduction of Other Diagnostic Substance into Coronary Artery, Percutaneous Approach (ICD-10-PCS; principal; 2019-04-08)
DX: F41.9 Anxiety disorder, unspecified (principal); E43 Unspecified severe protein-calorie malnutrition; I24.9 Acute ischemic heart disease, unspecified; R00.2 Palpitations; R00.0 Tachycardia, unspecified; D64.9 Anemia, unspecified; D72.819 Decreased white blood cell count, unspecified; E87.6 Hypokalemia; E83.41 Hypermagnesemia; I10 Essential (primary) hypertension; G43.909 Migraine, unspecified, not intractable, without status migrainosus; G40.909 Epilepsy, unspecified, not intractable, without status epilepticus; E03.9 Hypothyroidism, unspecified; E78.5 Hyperlipidemia, unspecified; G89.29 Other chronic pain; F32.9 Major depressive disorder, single episode, unspecified; Z91.81 History of falling; Z90.49 Acquired absence of other specified parts of digestive tract; Z98.891 History of uterine scar from previous surgery; Z98.51 Tubal ligation status; Z83.3 Family history of diabetes mellitus; Z82.49 Family history of ischemic heart disease and other diseases of the circulatory system; Z82.5 Family history of asthma and other chronic lower respiratory diseases; Z84.89 Family history of other specified conditions; Z79.890 Hormone replacement therapy; Z68.34 Body mass index [BMI] 34.0-34.9, adult

== ENCOUNTER 2019-09-01 20:35 | Emergency (ER) | payer SELFPAY ==
[~2019-09-01] VITALS: Ht 165.1 cm; Wt 90.7 kg
[~2019-09-01 20:35] MED LIST changes: +DOXEPIN HCL50 MG PO; +DULOXETINE HCL60 MG PO; +LEVOTHYROXINE175 MCG PO; +MINIPRESS2 M1 PO
[2019-09-01 20:36] VITALS: BP 109/68
[2019-09-01] MEDS ORDERED: ZITHROMAX250 MG PO (22:02)
[2019-09-01] MEDS ORDERED: TESSALON PERLE100 M1 PO (22:02)
== END 2019-09-01 22:05 | disposition home or self-care (01) ==
LOC: ED 20:35
DX: J06.9 Acute upper respiratory infection, unspecified (principal)

== ENCOUNTER 2019-10-27 23:12 | Emergency (ER) | payer OTHER ==
[2019-10-27 23:20] VITALS: BP 113/80
== END 2019-10-28 00:17 | disposition home or self-care (01) ==
LOC: ED 23:12
DX: R04.0 Epistaxis (principal); E78.5 Hyperlipidemia, unspecified; E03.9 Hypothyroidism, unspecified; G40.909 Epilepsy, unspecified, not intractable, without status epilepticus; G43.909 Migraine, unspecified, not intractable, without status migrainosus

== ENCOUNTER 2020-07-26 19:39 | Emergency (ER) | payer OTHER ==
[~2020-07-26] VITALS: Ht 165.1 cm; Wt 84.4 kg
[2020-07-26 19:46] VITALS: BP 137/83
[2020-07-26 21:14] LABS: BILIRUBIN Negative (Negative); BLOOD Negative (Negative); CLARITY Cloudy (Clear); COLOR Dark Yellow (Yellow); GLUCOSE Negative (Negative); KETONE Negative (Negative); LEUKO ESTERASE Trace (Negative); NITRITE Negative (Negative); PH 5.5 (4.5-8.0); SPECIFIC GRAVITY >= 1.030 (1.001-1.030)
[2020-07-26 21:22] LABS: EPITHELIAL CELLS 21-30; RBC 0-2 rbc/hpf (0-2)
[2020-07-26 21:23] LABS: BACTERIA 3+
== END 2020-07-26 21:37 | disposition left against medical advice (07) ==
LOC: ED 19:39
PROVIDERS: Nurse Practitioner
DX: Z32.02 Encounter for pregnancy test, result negative (principal)

== ENCOUNTER → 2021-09-19 | Outpatient (CLI) | payer OTHER | END | disposition home or self-care (01) | LOC: US 09-16 13:00 | PROVIDERS: ATTEND Preventive Medicine Occupational Medicine | DX: G96.191 Perineural cyst (principal) ==